=== PATIENT | female | born 1945 | race Caucasian/White ===

== ENCOUNTER 2021-08-20 10:03 | Emergency (ER) | payer MEDICARE, OTHER, SELFPAY ==
[2021-08-20] VITALS (14 sets, daily range): BP systolic 115–168; BP diastolic 60–92; PULSE 76–91; RESP 18; TEMP 35.9; O2SAT 91–100; BMI 30.8
--- NOTE | 2021-08-20 10:04 | DI.RAD.S_ITS ---
PROCEDURE: XR KNEE RT 1TO2V INDICATIONS: fall injury TECHNIQUE: 2 views of the knee were acquired. COMPARISON: [facility], CR, XR KNEE ARTHRITIC SERIES LT, 10/04/2015, 13:39. FINDINGS: Bones: No definite acute fracture identified however there is lucency involving the lateral tibial plateau, technically age indeterminate. Mild narrowing of the medial joint space. Scattered degenerative subchondral sclerosis and spurring. Soft tissues: No joint effusion. No suspicious soft tissue calcifications. IMPRESSION: Nonspecific lucency involving the lateral tibial plateau although radiographically this is age indeterminate and could be chronic. Please correlate with point tenderness. Further evaluation with follow-up radiographs in 10 days to assess for healing sclerosis could be considered. If the patient's pain or other symptoms persist, consider further evaluation with MRI Dictated by: Wesley Valdovinos M.D. on 08/20/2021 at 10:32 Approved by: Wesley Valdovinos M.D. on 08/20/2021 at 10:34
--- NOTE | 2021-08-20 10:04 | DI.RAD.S_ITS ---
PROCEDURE: XR ANKLE RT MIN 3V INDICATIONS: fall injury TECHNIQUE: 3 views of the ankle were acquired. COMPARISON: None. FINDINGS: Bones: Lateral malleolar fracture of the level of the tibiotalar joint line and syndesmosis. Medial malleolar fracture also noted. There is gross tibiotalar articular surface incongruity. Scattered degenerative subchondral sclerosis and spurring. Large plantar and posterior calcaneal spurs. Soft tissues: Circumferential soft tissue swelling. IMPRESSION: Bimalleolar fractures as above. Dictated by: Wesley Valdovinos M.D. on 08/20/2021 at 10:34 Approved by: Wesley Valdovinos M.D. on 08/20/2021 at 10:49
--- NOTE | 2021-08-20 10:04 | DI.RAD.S_ITS ---
PROCEDURE: XR RIBS RT MIN 3V W CXR 1V INDICATIONS: fall injury TECHNIQUE: 2 views of the right ribs were acquired, along with a single view chest. COMPARISON: None. FINDINGS: Surgical changes and devices: None. Bones and chest wall: Posterolateral fracture of the right 5th rib. There is minimal displacement. Lungs and pleura: Scattered subsegmental atelectasis and/or scarring. No focal consolidation. No pleural effusion or pneumothorax. Mediastinum: Mediastinal contours appear normal. Heart size is normal. IMPRESSION: Minimally displaced fracture of the posterolateral right 5th rib. Dictated by: Wesley Valdovinos M.D. on 08/20/2021 at 10:28 Approved by: Wesley Valdovinos M.D. on 08/20/2021 at 10:31
--- NOTE | 2021-08-20 10:04 | ED.LOWEXIN ---
HPI - Extremity Injury (Lower) General Chief Complaint: Trauma Stated Complaint: R Leg pain Time Seen by Provider: 08/20/21 10:08 History of Present Illness HPI Narrative: Patient is a 68 year male history of insulin-dependent diabetic atrial fibrillation on Coumadin presenting today after a fall yesterday with right leg pain. She states that she stepped out of a large truck landed mostly on her right foot and ankle and eventually the lower to the ground. She did not hit her head or lose consciousness. She is complaining of right thoracic back pain. She has no numbness tingling or pain while breathing. She really is not able to bear weight on her right leg. She has knee pain and foot pain. She denies hip pain. Related Data Home Medications Medication Instructions Recorded Confirmed insulin detemir U-100 100 unit/mL 60 unit SUBCUT BEDTIME ml 07/26/19 08/20/21 subcutaneous solution (Levemir U-100 Insulin) metformin 1,000 mg tablet,extended 1,000 mg PO BID tab 07/26/19 08/20/21 release 24hr warfarin 5 mg tablet See Rx Instructions .ROUTE .COMPLEX 07/26/19 08/20/21 metoprolol tartrate 50 mg tablet 50 mg PO BID 08/20/21 08/20/21 Previous Rx's Medication Instructions Recorded hydrocodone 5 mg-acetaminophen 325 1 tab PO Q6H PRN #10 tab 08/20/21 mg tablet Allergies Allergy/AdvReac Type Severity Reaction Status Date / Time Penicillins Allergy does not Verified 07/26/19 11:13 remember Review of Systems Review of Systems Narrative: GENERAL: Denies chills, fatigue, malaise, fever, sweats, travel HEENT: Denies sinus pain, ear pain, sore throat, difficulty swallowing, neck pain RESPIRATORY: Denies dyspnea, cough, wheezing, hemoptysis, sputum. CARDIOVASCULAR: Denies chest pain, palpitations, orthopnea, edema GASTROINTESTINAL: Denies nausea, vomiting, abdominal pain, diarrhea, constipation, melena. : Denies dysuria, frequency, incontinence, hematuria, urinary retention, flank pain. MUSCULOSKELETAL: Lower extremity pain on the right, pain see HPI SKIN: No rash, no erythema, no pruritus NEUROLOGIC: Denies weakness, dizziness, headache, numbness, change in speech, confusion PSYCHIATRIC: No concerning psychosocial issues. 12 point review of systems is negative except for those stated above and HPI Patient History Social History household members: spouse Exam Initial Vital Signs Initial Vital Signs: Vital Signs Temperature 96.7 F L 08/20/21 09:56 Pulse Rate 91 H 08/20/21 09:56 Respiratory Rate 18 08/20/21 09:56 Blood Pressure 168/73 H 08/20/21 09:56 Pulse Oximetry 98 08/20/21 09:56 GENERAL: Alert well-appearing 68-year-old HEENT: Head atraumatic,EOMI, pupils reactive, face symmetric, moist mucous membranes CARDIOVASCULAR: Regular rate and rhythm without murmurs, rubs or gallops. RESPIRATORY: Breath sounds equal bilaterally, no wheezes rales or rhonchi. ABDOMEN: Soft, nontender. Normoactive bowel sounds all 4 quadrants. No guarding or rebound. BACK: No vertebral tenderness no step-off a right thoracic pain no paradoxical movement no contusion EXTREMITIES: Normal range of motion, no clubbing or edema. Neurovascularly intact Right lower extremity no hip pain able to internal and externally rotate however with internal rotation she has pain in her knee. She is able to flex and extend knee she has some very minimal swelling no erythema. Ankle has bilateral swelling mild contusion distal pedal pulse intact foot is within normal limits NEUROLOGICAL: Alert and oriented x4.Normal gait and speech. Cranial nerves II through XII grossly intact. SKIN: Warm, dry, no laceration, no petechiae, no rashes or lesions. Procedures Orthopedic Splinting/Casting Injury #1: Side: right Lower Extremity Injury Location: knee and lower leg Lower Extremity Immobilizer: posterior splint, knee immobilizer and stirrup splint Post splinting neuro exam: intact Post splinting vascular exam: intact Course Orders Ordered: ED Orders 08/20/21 10:04 XR ankle RT min 3V Stat XR knee RT 1to2V Stat XR ribs RT min 3V w CXR1V Stat 08/20/21 10:07 XR hip w pel if done RT 2V Stat 08/20/21 11:18 CT LE RT wo con Stat 08/20/21 14:38 Consult to Physical Therapy Evaluate & Treat 08/20/21 15:42 Consult to Physical Therapy Evaluate & Treat Discontinued Medications Hydrocodone Bitart/Acetaminophen (Hydrocodone/Acet 5/325 Tablet) 1 tab PO NOW ONE Stop: 08/20/21 10:05 Last Admin: 08/20/21 10:13 Dose: 1 tab Documented by: DIMITRI Vital Signs Vital signs: Vital Signs - 8 hr 08/20/21 11:00 08/20/21 11:01 08/20/21 11:30 Pulse Rate 80 83 82 Blood Pressure 135/63 Pulse Oximetry 91 92 100 08/20/21 11:31 08/20/21 12:00 08/20/21 12:01 Pulse Rate 76 76 80 Blood Pressure 138/66 139/60 Pulse Oximetry 98 91 98 08/20/21 12:30 08/20/21 12:31 08/20/21 13:00 Pulse Rate 77 79 84 Blood Pressure 117/60 Pulse Oximetry 95 96 95 08/20/21 13:01 08/20/21 13:30 08/20/21 14:00 Pulse Rate 77 90 78 Blood Pressure 115/92 H 118/78 Pulse Oximetry 96 93 96 08/20/21 14:01 Pulse Rate 77 Blood Pressure 116/62 Pulse Oximetry 96 MDM - Extremity Injury (Lower) Imaging Data Extremity x-ray #1: Radiologist's Impression: PROCEDURE:? XR ANKLE RT MIN 3V ? INDICATIONS:? fall injury ? TECHNIQUE:? 3 views of the ankle were acquired.? ? COMPARISON:? None. ? FINDINGS:? ? Bones:? Lateral malleolar fracture of the level of the tibiotalar joint line and syndesmosis.? Medial malleolar fracture also noted.? There is gross tibiotalar articular surface incongruity. ?Scattered degenerative subchondral sclerosis and spurring.? Large plantar and posterior calcaneal spurs. ? Soft tissues:? Circumferential soft tissue swelling. ? ? IMPRESSION:? Bimalleolar fractures as above. ? Dictated by: Wesley Valdovinos M.D. on 08/20/2021 at 10:34 ? ? Extremity x-ray #2: Radiologist's Impression: PROCEDURE:? XR KNEE RT 1TO2V ? INDICATIONS:? fall injury ? TECHNIQUE:? 2 views of the knee were acquired.? ? COMPARISON:? [facility], CR, XR KNEE ARTHRITIC SERIES LT, 10/04/2015, 13:39. ? FINDINGS:? ? Bones:? No definite acute fracture identified however there is lucency involving the lateral tibial plateau, technically age indeterminate.? Mild narrowing of the medial joint space. Scattered degenerative subchondral sclerosis and spurring.? ? Soft tissues:? No joint effusion.? No suspicious soft tissue calcifications.? ? ? IMPRESSION:? ? Nonspecific lucency involving the lateral tibial plateau although radiographically this is age indeterminate and could be chronic.? Please correlate with point tenderness.? Further evaluation with follow-up radiographs in 10 days to assess for healing sclerosis could be considered.? If the patient's pain or other symptoms persist, consider further evaluation with MRI ? ? ? Dictated by: Wesley Valdovinos M.D. on 08/20/2021 at 10:32 ? ? Approved by: Wesley Valdovinos M.D. on 08/20/2021 at 10:34 ? Extremity x-ray #3: Radiologist's Impression: PROCEDURE:? XR HIP W PEL IF DONE RT 2V ? INDICATIONS:? pain fall ? TECHNIQUE:? AP pelvis with lateral view(s) of the right hip(s).? ? COMPARISON:? None. ? FINDINGS:? ? Bones:? Lumbar spondylosis and facet arthropathy.? Degenerative sclerosis and spurring at the pubis symphysis.? Mild bilateral hip joint degeneration. ? Soft tissues:? The visualized bowel gas pattern is normal.? No suspicious soft tissue calcifications.? ? ? IMPRESSION:? No acute findings.? Chronic changes as above. If the patient's pain or other symptoms persist, consider further evaluation with MRI ? Dictated by: Wesley Valdovinos M.D. on 08/20/2021 at 10:50 ? ? CT LE RT: Radiologist's Impression: PROCEDURE:? CT LE RT WO CON ? INDICATIONS:? ? tibial plateau and ankle fx ? TECHNIQUE:? Noncontrast 1-1.5 mm axial sections acquired from the mid-patella to the proximal tibia, with coronal and sagittal reformats.? ? COMPARISON:? None. ? FINDINGS:? Image quality:? Excellent.? ? Bones:? Minimal displaced fracture of the medial fibular head.? Mildly comminuted fracture of the lateral tibial plateau. Minimal displaced fracture of the medial tibial plateau. Bimalleolar fracture of the ankle. Superior and inferior patellar enthesophytes are noted. 6.6 mm lucency in the 2nd cuneiform, compatible with fibrocystic change.? Degenerative changes about the midfoot with osteophytosis. ? Soft tissues:? Edema about the fracture sites.? Small suprapatellar and ankle joint effusions. ? ? IMPRESSION:? 1. Fractures of the lateral tibial plateau and medial femoral condyle as detailed above. 2. Minimal displaced fracture of the medial tibial plateau.? 3. Bimalleolar fracture of the ankle with associated joint effusion. ? Dictated by: Dominick Morris M.D. on 08/20/2021 at 11:35 ? ? MDM Narrative Medical decision making narrative: Patient fell yesterday complaining of isolated right lower extremity injury. No head injury or neck pain. X-rays confirm possible tibial plateau fracture and bilateral malleolar fracture. CT is done which confirms tibial plateau fracture. Case is discussed with Dr. Ferrara at this time recommend knee immobilizer and short ankle splint. Patient will need surgery request that she call the office to follow-up with Dr. Roman. She will need to stop her Coumadin prior to surgery. The patient is splinted attempted ambulation with crutches however she was unsuccessful. Physical therapy came down and she is able to use walker much easier. She continues to not weight-bear on her right leg. Her pain is very well controlled with oral pain pills at this time. Discharge Plan Departure Patient Disposition: Home Clinical Impression: Closed fracture of right tibial plateau Ankle fracture, right Qualifiers: Encounter type: initial encounter Fracture type: closed Qualified Code(s): S82.891A - Other fracture of right lower leg, initial encounter for closed fracture Instructions: Ankle Fracture, DI for Tibial Plateau Fracture Activity Restrictions/Additional Instructions: *You have been diagnosed with right ankle and knee fracture *What to do: The fracture will heal on its own but will need to remain immobilized. Ankle fracture will need surgery. It is likely that you can have surgery this week. He will need to stop your warfarin/Coumadin however before stopping it please confirm with Orthopedics when surgery date is. May need to talk to primary care provider in regards to stopping Coumadin as well Do not weightbear Use crutches *Continue to take medications as directed [place] 1 tablet every 6 hours if needed for severe *Follow up with your primary care provider in 2-3 days Call orthopedics today he will likely need to see Dr. Harmon *Return to ER if you should have increasing pain swelling numbness tingling inability to move the toes or any new, worsening or concerning symptoms CONTROLLED SUBSTANCE DISCHARGE (Narcotoic/benzodiazepine/Flexeril/Phenergan) 1. You have been prescribed narcotic medications, it does have acetaminophen/Tylenol/paracetamol in it, DO NOT TAKE MORE THAN 4,00mg in 24 hours of Tylenol. TRAMADOL DOES NOT CONTAIN TYLENOL 2. Please understand that we cannot provide further refills of narcotics, benzodiazepines or controlled substances through the ED and her pain management will need to be through your provider. 3. While on these medications you cannot drive or operate heavy machinery. 4. You cannot sign legal documents or perform any duties such as this. 5. As long as you're taking opiate pain medications he should also be taking a stool softener such as Colace, Dulcolax, MiraLAX or prune juice, to help avoid constipation. Prescriptions: New hydrocodone-acetaminophen 5-325 mg tablet 1 tab PO Q6H PRN (Reason: pain) Qty: 10 RF: 0 No Action warfarin 5 mg tablet See Rx Instructions .ROUTE .COMPLEX RF: 0 metformin 1,000 mg tablet extended release 24hr 1,000 mg PO BID RF: 0 Levemir U-100 Insulin 100 unit/mL solution 60 unit SUBCUT BEDTIME RF: 0 metoprolol tartrate 50 mg Tablet 50 mg PO BID RF: 0 Referrals: [facility] [Provider Group] Mine Petersen MD [Physician] -
--- NOTE | 2021-08-20 10:07 | DI.RAD.S_ITS ---
PROCEDURE: XR HIP W PEL IF DONE RT 2V INDICATIONS: pain fall TECHNIQUE: AP pelvis with lateral view(s) of the right hip(s). COMPARISON: None. FINDINGS: Bones: Lumbar spondylosis and facet arthropathy. Degenerative sclerosis and spurring at the pubis symphysis. Mild bilateral hip joint degeneration. Soft tissues: The visualized bowel gas pattern is normal. No suspicious soft tissue calcifications. IMPRESSION: No acute findings. Chronic changes as above. If the patient's pain or other symptoms persist, consider further evaluation with MRI Dictated by: Wesley Valdovinos M.D. on 08/20/2021 at 10:50 Approved by: Wesley Valdovinos M.D. on 08/20/2021 at 10:52
[2021-08-20] MEDS: HYDROCODONE/ACET 5/325 TABLET 1 TAB PO (10:13)
--- NOTE | 2021-08-20 11:18 | DI.CT.S_ITS ---
PROCEDURE: CT LE RT WO CON INDICATIONS: ? tibial plateau and ankle fx TECHNIQUE: Noncontrast 1-1.5 mm axial sections acquired from the mid-patella to the proximal tibia, with coronal and sagittal reformats. COMPARISON: None. FINDINGS: Image quality: Excellent. Bones: Minimal displaced fracture of the medial fibular head. Mildly comminuted fracture of the lateral tibial plateau. Minimal displaced fracture of the medial tibial plateau. Bimalleolar fracture of the ankle. Superior and inferior patellar enthesophytes are noted. 6.6 mm lucency in the 2nd cuneiform, compatible with fibrocystic change. Degenerative changes about the midfoot with osteophytosis. Soft tissues: Edema about the fracture sites. Small suprapatellar and ankle joint effusions. IMPRESSION: 1. Fractures of the lateral tibial plateau and medial femoral condyle as detailed above. 2. Minimal displaced fracture of the medial tibial plateau. 3. Bimalleolar fracture of the ankle with associated joint effusion. Dictated by: Dominick Morris M.D. on 08/20/2021 at 11:35 Approved by: Domniick Morris M.D. on 08/20/2021 at 11:47
--- NOTE | 2021-08-20 15:30 | PT.IIE ---
Physical Therapy Inpatient Evaluation/Re-Eval M1 PT/OT-IP Prior Functional Status Start: 08/20/21 14:43 Freq: Status: Discharge Protocol: Document 08/20/21 15:30 AW (Rec: 08/20/21 16:10 AW [id number]) Medical Review Prior Functional Status Medical History Reviewed No Communication Pt is an effective verbal communicator. Mobility and Gait Pt reports independent household ambulation and modified IND for outdoors with use of tripod cane. She records up to 2000 steps per day on her pedometer. Activities of Daily Living and IADL's Modified IND for showering with use of shower chair. Pt dresses herself and toilets independently. She is independent with IADL's. Her can drive. Prior Functional Level (Other details) PMH includes insulin dependent DM, a fib on coumadin, peripheral neuropathy, history of multiple fractures. Pt states she has fallen twice in the past one year. Social History Household Members spouse Living Arrangements House Number of Floors (Floors) One Floor Number of Stairs To Enter/Railing? Ramped entry appropriate for w /c. Home Environment Standard Height Toilet,Walk in Shower,Ramp Home Equipment Manual Wheelchair,Shower Seat with Backrest,Hand Held Shower ,Long Handled Shoe Horn, Secondary School Special Ed Teacher,Sock Aid,Grab Bars Near Toilet Employment Status Retired Additional Social History Comment Pt has a tripod cane and an adjustable bed. She lives with her spouse, Rory, in [place]. Rory is able to provide up to min assist for mobility. M2 PT-IP Current Condition Start: 08/20/21 14:43 Freq: Status: Discharge Protocol: Document 08/20/21 15:30 AW (Rec: 08/20/21 16:10 AW [id number]) Physical Therapy Current Condition Current Condition Evaluation Date 08/20/21 Treatment Diagnosis R bimalleolar fx, R lat tib plat fx, med fem condyle fx; difficulty walking Onset Date 08/20/21 Precautions Brace splint for ankle; knee immobilizer ordered for all mobility Other Precautions falls Weight Bearing Status Weight Bearing Status Non-Weight Bearing Allowed Weight Bearing Amount (enter % NWB RLE or #) (%) M3 PT-IP Subjective Start: 08/20/21 14:43 Freq: Status: Discharge Protocol: Document 08/20/21 15:30 AW (Rec: 08/20/21 16:10 AW [id number]) Subjective Physical Therapy Visit Type Type Initial Evaluation Visit Start Time 14:53 Visit Stop Time 15:30 Total Visit Minutes 37 Notes ED RN's had difficulty with crutches training and ED provider ordered PT consult. Physical Therapy Visit Comments Patient Comments I'm not sure I can manage on crutches. Patient Goals Return home until surgery for fractures. Therapy Pain Assessment Pain When Pain Assessed During Mobility Pain Present Pain Present Pain Reported Location Right Leg Scale Used not quantified Pain Behaviors Wincing Pain Management Techniques Modification of Treatment,Re- positioning M4 PT-IP Mobility and Gait Start: 08/20/21 14:43 Freq: Status: Discharge Protocol: Document 08/20/21 15:30 AW (Rec: 08/20/21 16:10 AW [id number]) PT-Transfer Assessment Sit to and From Stand Sit to and from Stand Contact Guard Assistance, Minimal Assistance,1 Person Assistance,Use of Upper Extremities Equipment Transfer Assistive Device Gait Belt,Front Wheeled Walker Orthotic/Prosthetic Devices or Brace: Yes Transfers Transfer Destination Wheelchair Transfer Technique Stand Step Pivot Transfer Ability Level of Assist Contact Guard Assistance, Minimal Assistance,1 Person Assistance,Use of Upper Extremities Comments Mobility Comments Pt was sitting up in w/c as PT arrived. PT educated pt on weightbearing status, rationale for use of FWW, and safe use of FWW for transfers. PT demonstrated NWB RLE transfers using FWW. On first attempt, pt required min A x 1 for sit to stand but was able to maintain NWB RLE. She sat on the w/c and attempted sit to stand again with need for CGA. Pt then walked forward and backward three steps each direction with FWW CGA. She returned to the w/c for seated rest break. Pt's spouse arrived and PT demonstrated donning/doffing gait belt which pt and her spouse agreed they could manage. PT educated spouse on guarding techniques and level of assist . Pt's spouse was able to provide CGA appropriately as pt stood from the w/c and ambulated 5 feet with FWW as PT followed with w/c. Pt returned to the w/c CGA. She then transferred w/c <> dasha with FWW and her spouse providing CGA to min assist ( in his estimation). Gait Assessment Gait Gait Assistance Required: Contact Guard Assist,Minimum Assistance Distance (Feet) 5 Able to Maintain Weight Bearing Status Yes During Gait Assistive Devices Assistive Device Gait Belt,Front Wheeled Walker Orthotic/Prosthetic Devices or Brace: Yes Gait Deviations General Gait Pattern Antalgic,Decreased Stride Length,Decreased Feet Clearance,Flexed Trunk,Step-to Gait Factors Limiting Gait Function Factors Limiting Gait Function Decreased Activity Tolerance, Decreased Sensation,Decreased Strength,Limited Range of Motion,Pain,Poor Balance Comments Gait Comments Pt was able to maintain NWB RLE with FWW after PT provided instruction and demonstration . Pt states she will not need to walk farther than 5 feet at home and plans to primarily mobilize with w/c. Stair Climbing Assessment Comments Stair Climbing Comments Not assessed. No stairs at home. PT-Balance Assessment Sitting Balance and Reactions Static Sitting Balance Ability Normal Dynamic Sitting Balance Ability Normal Standing Balance and Reactions Static Standing Balance Ability Fair Dynamic Standing Balance Ability Fair Device Used FWW Comments Other Balance Tests/Deviations/Treatment Pt able to ambulate 5 feet on : LLE with FWW M5 PT-IP Objective Assessments Start: 08/20/21 14:43 Freq: Status: Discharge Protocol: Document 08/20/21 15:30 AW (Rec: 08/20/21 16:10 AW [id number]) Orientation Orientation/Cognition Level of Alertness Alert Orientation Name,Day of Week,Place, Situation Language Function Ability No Deficits Noted Safety Awareness Understands Safety Issues Memory Description No Deficits Noted Gross Range of Motion Upper Extremity ROM Assessment Within Functional Limits Lower Extremity ROM Assessment Right Impaired Strength Upper Extremity Strength Assessment Within Functional Limits Lower Extremity Strength Assessment Right Impaired Comments Strength Comments Left hip 4/5. Left knee and ankle 4+/5. Sensation Assessment Sensation Gross Sensation Right UE Impaired,Left UE Impaired,Right LE Impaired, Left LE Impaired Light Touch Impaired Proprioception (Position) Impaired Sensation Description Numbness Comments Sensation Comments Pt reports neuropathy affects sensation from knee joint and distal bilaterally. Hands are also affected. Muscle Tone Muscle Tone WNL Yes M6 PT-IP Treatment Start: 08/20/21 14:43 Freq: Status: Discharge Protocol: Document 08/20/21 15:30 AW (Rec: 08/20/21 16:10 AW [id number]) Physical Therapy Treatment Education Education Provided Weight Bearing Status,Safety Brace Education [place],Patient, Caregiver Equipment Issued Equipment Type and Company ED issued FWW for home use/ [employer]. Other Treatments Other Treatment Performed Provided extensive sit-to- stand and transfer training. Pt's spouse participated in caregiver training M7 PT-IP Assessment and Plan Start: 08/20/21 14:43 Freq: Status: Discharge Protocol: Document 08/20/21 15:30 AW (Rec: 08/20/21 16:10 AW [id number]) PT Summary Assessment and Plan Potential Rehabilitation Potential Good Status of Condition at Evaluation Evolving Summary Impairments Pain,ROM,Strength,Balance, Sensation,Bed Mobility, Transfers,Gait,Activity Tolerance Assessment Summary Pat is a 76 yo woman seen for PT evalaution in the ED. She fell from a truck and sustained right bimalleolar ankle fracture as well as lateral tibial plateau and medial femoral condyle fractures. She is to be NWB RLE and to use knee immobilizer for all mobility. She is independent with household ambulation and modified independent outside the home with use of tripod cane. On assessment, pt required min assist/CGA for sit to stand, transfers, and short distance ambulation with FWW. Her spouse was able to provide appropriate level of assist. Pt has ramped entry at home and a wheelchair. PT recommends FWW for transfers at home and pt would benefit from BSC or raised toilet seat . Pt is safe to discharge home with FWW and 24/7 assist for all mobility. She would benefit from home health services. She will have ortho consult and surgery on an outpatient basis. Frequency of Treatment Frequency Of Treatment Discharge Recommendations To Nursing Amount of Assist Needed 1 Person Assist Discharge Recommendations PT Discharge Recommendations Home with Assistance,Home with 24/7 Assist Available,Home Health Other Discharge Recommendations BSC vs raised toilet seat Transportation Needs at Discharge Private Vehicle
== END 2021-08-20 15:44 | disposition home or self-care (01) ==
PROVIDERS: Emergency Provider Emergency Medicine
DX: S82.141A Displaced bicondylar fracture of right tibia, initial encounter for closed fracture (principal); S82.891A Other fracture of right lower leg, initial encounter for closed fracture; W19.XXXA Unspecified fall, initial encounter
CPT/HCPCS: 29515; 29530; 71101; 73502; 73560; 73610; 73700; 97162; 97530; 97535; 99284; 99285

== ENCOUNTER → 2021-10-03 14:41 | Outpatient (CLI) | payer MEDICARE, OTHER, SELFPAY ==
[2021-10-03 15:14] LABS: COVID19 -Nasal RAPID Negative (Negative)
== END ==
PROVIDERS: Family Provider Orthopaedic Surgery Foot and Ankle Surgery; PCP Orthopaedic Surgery Foot and Ankle Surgery; Visit Provider Nurse Practitioner Family
DX: Z20.822 Contact with and (suspected) exposure to COVID-19 (principal)
CPT/HCPCS: 87635; C9803

== ENCOUNTER 2021-10-05 12:04 | Inpatient (IN) | payer MEDICARE, OTHER, SELFPAY ==
[2021-10-05] VITALS (8 sets, daily range): BP systolic 117–135; BP diastolic 49–81; PULSE 83–89; RESP 12–18; TEMP 36.1–36.8; O2SAT 91–96; BMI 31.2
[2021-10-05] MEDS: LACTATED RINGERS 1,000 ML 42 ML IV (13:18)
--- NOTE | 2021-10-05 15:48 | PM.PREOP ---
Pre-operative Note Interval Note History & Physical reviewed/Exam performed by Physician: Yes Changes to H&P: No
[2021-10-05] MEDS: CLINDAMYCIN 900 MG/50 ML PIGGYBACK 50 MG IV (16:08)
--- NOTE | 2021-10-05 16:38 | SUR.OPER ---
Supine on padded OR bed, head on pillow, arms secured on padded arm boards at <90 degrees abduction, legs uncrossed, safety belt at thigh, tape over blanket over lower legs. rolled blankets positioned under patient's right leg.
[2021-10-05] MEDS: BUPIVACAINE 0.25% (PF) 30 ML, EPINEPHrine 0.15 MG INJ (16:57)
--- NOTE | 2021-10-05 17:18 | SUR.PHASEI ---
surgeon in to speak with patient. questions invited and answered. physician aware toes are cold on RLE. States WNL.
--- NOTE | 2021-10-05 17:28 | P.OP_ITS ---
Operative Date/Time/Diagnoses Date of procedure: 10/05/21 Time of procedure: 16:00 Pre-op diagnosis: Infection surgical site Post-op diagnosis: same Procedure & Clinicians Procedure: Irrigation debridement muscle fascia initial 20 sq cm or less, right CPT code 16830 Same procedure as scheduled: Yes Indications: Patient is a 76-year-old female on chronic anticoagulation for atrial fibrillation that fell and injured her right knee and ankle on August 19, 2021. She was found to have a tibial plateau fracture and a bimalleolar ankle fractur e. She is status post ORIF ankle fracture 08/28/2021. Non operative treatment tibial plateau. She had a lateral incision a dehiscence at her ankle with worsening appearance concerning for infection. She was indicated for formal debridement in the operating room and cultures. The risks and benefits of the procedure have been discussed with the patient even opportunity to ask questions. The risks of surgery include but are not limited to infection, malunion, nonunion, persistence of pain, damage to nerves and blood vessels, posttraumatic arthritis, DVT, PE, cardiopulmonary complications and . The patient expressed a thorough understanding of the risks and benefits of surgery and has elected to proceed. Consent was signed in the office. Surgeon: Mine Petersen Click Yes if Unassisted: Yes Anesthesia Type: General and Local Operative Notes Findings: Proximal 1/3 incision with dehiscence and deep tracking to hardware. No gross purulence was encountered but there was some necrotic muscle that was debrided. Closure Type: primary Specimen(s): other (Tissue and culture swab sent) Estimated Blood Loss (mL): 10 Blood products transfused: none Tourniquet time (min): 14 Procedure in detail: Patient was seen in the preoperative area the site of surgery was marked informed consent confirmed. She was brought back to the operating room by the anesthesia team positioned supine on the operative table. All bony prominences well padded. An SCD was placed on the contralateral lower extremity. A well- padded thigh tourniquet was placed on the operative extremity. Right lower extremities prepped and draped in the standard sterile fashion. Formal time-out procedure was performed confirming the patient's side and site of surgery administration of antibiotics. The patient had been on a few days of oral antibiotics prior to her surgery date. Attention turned to the right lower extremity gravity exsanguination was completed the tourniquet elevated. The open wound along the lateral aspect of the ankle and proximal aspect of the previous fibular incision was ellipsed sized out. This did track full-thickness. No gross purulence was encountered. There was some necrotic muscle and fascia the location of the ellipsed sized wound. Finger dissection did get down to the plate proximally. A rongeur and curette were used to remove old dissolving sutures and nonviable tissue. Curette was used for debridement. Tissue and culture swabs were sent. Wound was thoroughly irrigated with 6 L of saline using cysto tubing. Once this was completed the tourniquet was released. Hemostasis was achieved. The wound was closed with 2-0 PDS and 2-0 nylon sutures. Sterile dressing was placed with Xeroform gauze Kerlix and an Vishnu wrap. A new padded dressing was placed on the patient's 1st metatarsal callus. Patient was woken from anesthesia and taken to recovery room in good condition. There no immediate complications from this procedure. All counts were correct. Complications: none Post-operative Condition: stable Disposition: PACU Plan for aftercare: Admit to inpatient for IV antibiotics. Empiric vancomycin. Will adjust based on cultures. Retained hardware for healing fracture. Plan for possible discharge with IV antibiotics. Toe-touch weight-bearing. Will restart baseline warfarin
--- NOTE | 2021-10-05 17:59 | SUR.PHASEI ---
1715 Observed pt's operative foot remarkably cooler palpated than other foot. Informed Dr. Petersen, no new orders at this time, poct glucose at transfer 82. Pt transported to and report given to FILOMENA Arnold, Pt in stable condition, a/ox 4. VSS
--- NOTE | 2021-10-05 18:05 | PC.NURSE ---
Day shift: Pt on unit from PACU at approx 1800. Denies any pain. VS WNL. RA 97%. Dressing is CDI. Rt foot/toes cold to the touch and COMMERCIAL HVAC TECHNICIAN said she informed Dr Martin. Will continue to monitor this. Tolerating left calf SCD. She is A&Ox4. Agrees to not get OOB w/o help from staff. Oriented to room and call light. Call light in reach and bed alarm is on.
[2021-10-05 19:16] LABS: Estimated Glomerular Filt Rate > 60.0 mL/min (>60)
[2021-10-05] MEDS: VANCOMYCIN 1,500 MG/300 ML PIGGYBACK 200 MG IV (19:21)
[2021-10-05] MEDS: SODIUM CHLORIDE 0.9% 1,000 ML 84 ML IV (19:21)
[2021-10-05] MEDS: INSULIN GLARGINE 100 UNIT/ML 3ML PEN 60 UNIT SUBCUT (20:51)
[2021-10-05] MEDS: METOPROLOL IR 50 MG TABLET PO (20:52)
[2021-10-05] MEDS: DOCUSATE 100 MG CAPSULE PO (20:52)
[2021-10-05] MEDS: ACETAMINOPHEN 325 MG TABLET 975 MG PO (20:52)
[2021-10-05] MEDS: METFORMIN XR 500 MG TABLET 1000 MG PO (20:52)
[2021-10-06 06:08] VITALS: BP 114/45; PULSE 77; RESP 16; TEMP 36.6; O2SAT 94
[2021-10-06] MEDS: SODIUM CHLORIDE 0.9% 1,000 ML 84 ML IV (06:15)
[2021-10-06] MEDS: VANCOMYCIN 1,000 MG/200 ML PIGGYBACK 200 MG IV ×2 (06:17→18:28)
[2021-10-06 07:18] LABS: Add Manual Diff / Slide Review NO; Basophils Absolute Auto 100 /uL (0-100); Basophils Percent Auto 0.7 % (0-2); Eosinophils Absolute Auto 400 /uL (0-450); Eosinophils Percent Auto 5.2 % (2-4); Hematocrit 37.8 % (36-46); Hemoglobin 12.7 g/dL (12.0-16.0); Lymphocytes Absolute Auto 1900 /uL (1100-4500); Lymphocytes Percent Auto 22.4 % (25-40); Mean Corpuscular HGB Conc 33.7 % (30-36); Mean Corpuscular Hemoglobin 30.1 PG (26-34); Mean Corpuscular Volume 89.5 fL (80-100); Monocytes Absolute Auto 400 /uL (0-900); Monocytes Percent Auto 4.8 % (3-14); Neutrophils Absolute Auto 5700 /uL (1500-7000); Neutrophils Percent Auto 66.9 % (50-75); Platelet Count 193 X10^3/uL (150-400); Red Blood Cell Count 4.22 X10^6/uL (4.0-5.2); Red Cell Distribution Width 14.4 % (11.6-14.8); White Blood Cell Count 8.6 X10^3/uL (4.5-11.0)
[2021-10-06 07:29] LABS: Alanine Aminotransferase 15 IU/L (<35); Albumin 3.9 g/dL (3.5-5.0); Albumin Globulin Ratio 1.2 (1.0-2.8); Alkaline Phosphatase 57 U/L (38-126); Aspartate Aminotransferase 21 IU/L (14-36); BUN Creatinine Ratio 19.2 (6-22); Bilirubin Total 0.4 mg/dL (0.2-1.3); Blood Urea Nitrogen 15 mg/dL (7-17); C-Reactive Protein Quant 1.3 mg/dL (<1.0); Calcium 10.2 mg/dL (8.4-10.2); Carbon Dioxide 24 mmol/L (22-32); Chloride 104 mmol/L (98-107); Estimated Glomerular Filt Rate > 60.0 mL/min (>60); Globulin 3.2 g/dL (1.7-4.1); Glucose 79 mg/dL (80-110); HEMOLYSIS < 15 (0-50); Potassium 4.9 mmol/L (3.4-5.1); Sodium 137 mmol/L (137-145); Total Protein 7.1 g/dL (6.3-8.2)
[2021-10-06 07:53] VITALS: BP 111/67; PULSE 82; RESP 18; TEMP 36.6; O2SAT 98
--- NOTE | 2021-10-06 08:46 | PM.PNPO.1 ---
Subjective Subjective Date Patient Seen: 10/06/21 Time Patient Seen: 08:46 Interval history: Postop day 1 I&D right ankle infection after open reduction internal fixation for fracture.--patient with diabetes, AFib Coumadin. Also has non tibial plateau fracture on right side. Doing well. Denies pain. Touchdown weight-bearing. No growth from cultures yet. On empiric vancomycin. Tolerating Exam Vital Signs (past 8 hours): - 10/06/21 06:08 Temperature 97.9 F Pulse Rate 77 Respiratory Rate 16 Blood Pressure 114/45 L Pulse Oximetry 94 Oxygen Delivery Method Room Air Oxygen Flow Rate 0 Narrative Exam Narrative: Alert oriented female no acute distress. HEENT exam normocephalic atraumatic respiratory exam. CV exam regular rate Right lower extremity dressing in place on ankle. Wiggles toes. Brisk capillary refill. Palpable dorsal pulse. Demonstrates dorsiflexion plantar flexion. Calf is soft. Objective Labs Result Diagrams: 10/06/21 07:00 10/06/21 07:00 Labs: Laboratory Results - last 24 hr 10/05/21 10/06/21 10/06/21 18:30 07:00 07:00 WBC 8.6 RBC 4.22 Hgb 12.7 Hct 37.8 MCV 89.5 MCH 30.1 MCHC 33.7 RDW 14.4 Plt Count 193 Neut % (Auto) 66.9 Lymph % (Auto) 22.4 L [place] % (Auto) 4.8 Eos % (Auto) 5.2 H Baso % (Auto) 0.7 Neut # (Auto) 5700 Lymph # (Auto) 1900 [place] # (Auto) 400 Eos # (Auto) 400 Baso # (Auto) 100 Sodium 137 Potassium 4.9 Chloride 104 Carbon Dioxide 24 BUN 15 Creatinine 0.75 0.78 Estimated GFR > 60.0 > 60.0 BUN/Creatinine Ratio 19.2 Glucose 79 L Calcium 10.2 Total Bilirubin 0.4 AST 21 ALT 15 Alkaline Phosphatase 57 C-Reactive Protein 1.3 H Total Protein 7.1 Albumin 3.9 Globulin 3.2 Albumin/Globulin Ratio 1.2 [facility] Medical History Breast cancer HTN (hypertension) IDDM (insulin dependent diabetes mellitus) Peritonitis Seizure, temporal lobe Social History household members: spouse Smoking Status: Never smoker alcohol intake: current Assessment & Plan Post-op Postoperative Procedures: Procedures Operation Date: 10/05/21 13:15 Actual Procedure Side Surgeon p I&D wound infection Right Ankle Right Mine Petersen MD Postoperative day: 1 Postoperative status: doing well Postoperative status narrative: Doing well. Denies pain. Postoperative plan narrative: Toe-touch weight-bearing. Indication for admission for continued IV antibiotics for infection/retained hardware for fracture healing. Cultures pending. Anticipate admission with IV antibiotics until cultures finalized. Restarted on home anticoagulation plus SCDs Time Spent With Patient Time with patient: less than 15 minutes Quality VTE Deep Vein Thrombosis/Pulmonary Embolism Present on Admission: No
--- NOTE | 2021-10-06 09:26 | CM.DANOTE ---
DCP: Case received, EMR reviewed and met with patient. Introduced self and role. Was able to obtain information regarding patient's baseline activity level prior to hospitalization. DCP assessment completed with information currently available. Patient is a 76 year old female who admitted yesterday morning to the care of the orthopedic team. PCP: Unknown at this time, but ortho is Dr. Petersen. Payer: confirmed: Medicare/[facility]. Patient came to the hospital via private vehicle for a surgical procedure. She had I&D, for previous surgery in August, as patient suffered from a tibial fracture, bimalleolar. Met with patient in her room. She is alert and oriented. Confirmed that she resides here in [place] with her spouse, Jose E. She indicated, he's 84 years old, and not much of a help. She also refuses to go to any rehab facilities due to the COVID pandemic. Confirmed with her also that she had [facility] for some time, they had been coming in 6 days a week after her surgery, but no longer needed them. She also indicated that [facility] was originally ordered, but had not used them, since she was going to try to do outpatient therapy, which did not work out. Patient indicated that she does not drive, her takes her to her appointments. She has a wheel-chair for home use. She stated, if she has to, she can call them again. She indicated that she lives in a handicap friendly house, there is a ramp to get in. She has a son that lives in [place], and another in [place]. She has grandchildren, but they have their own lives, and I don't expect them to help. She is hoping to have [facility] therapy and nursing to come in for dressing changes. Asked her if she would be comfortable managing IV therapy if needed, and stated, I really hope I don't, I'm getting old, and hope that I can just go home with oral antibiotics. Cultures are currently pending. Options for patient would be for her to go to infusion clinic if needed, depending on how often she needs IV ABO, if this is what is needed. Other option is [facility], if her secondary would cover, since home infusion is not covered by Medicare. P: DCP to continue to follow for needs, home health, and if she needs home infusion as well. Anastasia Prince RN/Gasoline Engine Assembler Discharge Planning/Care Management CM Discharge Assessment Start: 10/06/21 09:23 Freq: Status: Active Protocol: Document 10/06/21 09:23 (Rec: 10/06/21 09:26 [id number]) Discharge Planning Assessment Assigned Pediatrician Managing Partner Anastasia Prince RN/Gasoline Engine Assembler Advance Directives? Yes Advance Directives on File No History Provided By Patient,Medical Record Prior Living Arrangements House Household Members spouse Type of transporation used prior to Relies on Others admit Independent with ADL's Yes Is patient alert and oriented? Yes Needs Assistance With Meal Prep,Home Chores / Shopping Caregiver for Another No DME Already Rented / Owned Wheelchair Patient/Family Preference Home with Home Health Comment Patient had been using [facility] Comment If patient needs residential IV ABO, or wound vac. She will not go to rehab. Discharge Plan Home with Home Health Transportation Arrangement Spouse Referrals Initiated Other Additional Comment Will see how she does with P.T , and if she needs possible home infusion. Whiteboard Updated in Patient Room with Yes name and ext. # of Pediatrician Managing Partner Review Status In Process Next Review Type Continued Stay Review
--- NOTE | 2021-10-06 09:30 | PT.IIE ---
Current Diagnoses Nondisplaced unspecified condyle fracture of lower end of right femur, initial encounter for closed fracture (10/05/21) Displaced bicondylar fracture of right tibia, initial encounter for closed fracture (10/05/21) Displaced bimalleolar fracture of right lower leg, initial encounter for closed fracture (10/05/21) Surgery Performed Operation Date: 10/05/21 13:15 Actual Procedures p I&D wound infection Right Ankle(Right) - Mine Petersen MD Medical History (Last Reviewed 10/06/21 @ 08:49 by Mine Petersen MD) Breast cancer HTN (hypertension) IDDM (insulin dependent diabetes mellitus) Peritonitis Seizure, temporal lobe Physical Therapy Inpatient Evaluation/Re-Eval M1 PT/OT-IP Prior Functional Status Start: 10/06/21 12:41 Freq: NEEDED Status: Active Protocol: Document 10/06/21 09:30 AB (Rec: 10/06/21 13:03 AB [email or web address]) Medical Review Prior Functional Status Medical History Reviewed Yes Communication able to make needs known Mobility and Gait pt stated that she is modified independent with all mobilities and has not ambulated since august 19 due to L tibia and ankle fx. pt has been using a w/c for mobility indoors/outdoors and able to partial stand pivot without AD. Social History Household Members spouse Living Arrangements House Number of Floors (Floors) One Floor Number of Stairs To Enter/Railing? ramp to enter Home Environment Standard Height Toilet,Walk in Shower,Ramp Home Equipment Raised Toilet Seat w/Armrests, Shower Seat with Backrest,Grab Bars Near Toilet Additional Social History Comment pt has an adjustable bed M2 PT-IP Current Condition Start: 10/06/21 12:41 Freq: NEEDED Status: Active Protocol: Document 10/06/21 09:30 AB (Rec: 10/06/21 13:03 AB [email or web address]) Physical Therapy Current Condition Current Condition Evaluation Date 10/06/21 Treatment Diagnosis R ankle I&D s/p ORIF; difficulty in walking Onset Date 10/05/21 M3 PT-IP Subjective Start: 10/06/21 12:41 Freq: NEEDED Status: Active Protocol: Document 10/06/21 09:30 AB (Rec: 10/06/21 13:03 AB [email or web address]) Subjective Physical Therapy Visit Type Type Initial Evaluation Visit Start Time 09:30 Visit Stop Time 10:25 Total Visit Minutes 55 Notes pt with h/o R tibial plateau fx. Talked with Dr. Petersen and confirmed that pt does not need a knee immobilizer and can do ROM as tolerated and the only precaution is the TTWB on RLE. Number of COURTESY DRIVER Visits 0 Physical Therapy Visit Comments Patient Comments pt is agreeable to do PT but initially does not want to use FWW M4 PT-IP Mobility and Gait Start: 10/06/21 12:41 Freq: NEEDED Status: Active Protocol: Document 10/06/21 09:30 AB (Rec: 10/06/21 13:03 AB [email or web address]) PT-Transfer Assessment Sit to and From Stand Sit to and from Stand Standby Assistance,Minimal Assistance,Moderate Assistance ,1 Person Assistance Equipment Transfer Assistive Device None,Gait Belt,Front Wheeled Walker Orthotic/Prosthetic Devices or Brace: No Transfers Transfer Destination Bed,Chair Transfer Technique Stand Step Pivot Transfer Ability Level of Assist Standby Assistance,Minimal Assistance,Moderate Assistance ,Use of Upper Extremities Comments Mobility Comments pt sitting on bedside commode and ready to transfer to bed. completed stand pivot using FWW min A and cues back to the bed with posterior LOB. pt stated that she does not use a FWW to transfer and does a partial stand/squat pivot to/ from w/c and has not ambulated since she fracture her R tibia/ankle last aug.19. Pt agreed to do PT evaluation. educated pt on body posture and progression for a stand/ squat pivot transfer to using a FWW for a step pivot transfer for eventually ambulation when pt is allowed to put more weight on RLE. Pt agreed but still with some reservations. pt demonstrated partial stand/ squat pivot transfer from bed to chair SBA. able to maintain TTWB on RLE. pt educated on use of FWW for transfers, upright posture, COG and balance during transfers. pt completed sit to stand CGA and was able to stand using FWW for support and maintain TTWB RLE. completed pivot transfer using fWW to bed min A and cues. educated pt on how to take steps during transfers using FWW. pt completed sit to stand from EOB CGA and step transfer to chair min to mod A and cues but was able to take steps for transfers. pt stated that she is still not comfortable with step transfer and informed pt that she has not used a FWW before and she will need training and will progress. pt agreed to stay up on chair. positioned pt on chair. call light and table placed within reach. Gait Assessment Comments Gait Comments steps during transfers using FWW PT-Balance Assessment Sitting Balance and Reactions Static Sitting Balance Ability Good Dynamic Sitting Balance Ability Good Standing Balance and Reactions Static Standing Balance Ability Fair Dynamic Standing Balance Ability Fair Device Used FWW M5 PT-IP Objective Assessments Start: 10/06/21 12:41 Freq: NEEDED Status: Active Protocol: Document 10/06/21 09:30 AB (Rec: 10/06/21 13:03 [email or web address] Orientation Orientation/Cognition Level of Alertness Alert Orientation Name,Age,Birthday,Month,Date, Year,Day of Week,Place, Situation Language Function Ability No Deficits Noted Safety Awareness Understands Safety Issues Memory Description No Deficits Noted Gross Range of Motion Lower Extremity ROM Assessment Within Functional Limits Strength Lower Extremity Strength Assessment Right Impaired Hip 4-/5 Knee 3+/5 Coordination Assessment Gross Coordination Gross Coordination WNL Sensation Assessment Sensation Gross Sensation WNL Muscle Tone Muscle Tone WNL Yes M6 PT-IP Treatment Start: 10/06/21 12:41 Freq: NEEDED Status: Active Protocol: Document 10/06/21 09:30 AB (Rec: 10/06/21 13:03 AB [email or web address]) Physical Therapy Treatment Education Education Provided Precautions,Weight Bearing Status,Safety M7 PT-IP Assessment and Plan Start: 10/06/21 12:41 Freq: NEEDED Status: Active Protocol: Document 10/06/21 09:30 AB (Rec: 10/06/21 13:03 AB [facility]) PT Summary Assessment and Plan Potential Rehabilitation Potential Good Status of Condition at Evaluation Stable Summary Impairments Pain,ROM,Strength,Balance, Coordination,Sensation,Tone, Cognition,Bed Mobility, Transfers,Gait,Activity Tolerance Assessment Summary pt requiring min to mod A for step transfer using FWW but is SBA with squat pivot transfer . pt stated that her spouse is not comfortable assisting her. pt will need HHPT. pt is willing to work on step transfer using fWW while here in the hospital and hopefully be able to progress to some ambulation when appropriate. will continue to assess progress. Goals Bed Mobility Goal Independent Transfer Goal Independent,Front Wheeled Walker Gait Goal Contact Guard Assistance Gait Distance 25 Days to Meet Goals 10 Frequency of Treatment Frequency Of Treatment Once a Day Treatment Plan Physical Therapy Treatment Plan Bed Mobility Training,Transfer Training,Gait Training, Therapeutic Exercise,Balance Retraining,Post Op Education, Discharge Planning,Hot or Cold Pack,Neuromuscular Re-ed, Coordination Retraining,Manual Therapy Weight Bearing Status Weight Bearing Status Touch Down Weight Bearing Allowed Weight Bearing Amount (enter % RLE TTWB or #) (%) Recommendations To Nursing Amount of Assist Needed 1 Person Assist Discharge Recommendations PT Discharge Recommendations Home with Assistance,Home Health Transportation Needs at Discharge Private Vehicle
[2021-10-06] MEDS: METOPROLOL IR 50 MG TABLET PO ×2 (09:39→21:06)
[2021-10-06] MEDS: ACETAMINOPHEN 325 MG TABLET 975 MG PO ×3 (09:39→21:06)
[2021-10-06] MEDS: DOCUSATE 100 MG CAPSULE PO ×2 (09:39→21:06)
[2021-10-06] MEDS: METFORMIN XR 500 MG TABLET 1000 MG PO ×2 (09:39→21:07)
[2021-10-06 14:43] VITALS: BP 136/54; PULSE 80; RESP 19; TEMP 36.6; O2SAT 95
[2021-10-06] MEDS: WARFARIN 5 MG TABLET PO (17:39)
[2021-10-06 19:25] VITALS: BP 143/65; PULSE 78; RESP 14; TEMP 36.7; O2SAT 96
[2021-10-06 19:42] VITALS: PULSE 80; RESP 16; O2SAT 95
[2021-10-07] MEDS: OXYCODONE IR 5 MG TABLET PO (01:58)
[2021-10-07 02:00] VITALS: BP 139/68; PULSE 79; RESP 14; TEMP 36.5; O2SAT 95
[2021-10-07] MEDS: VANCOMYCIN 1,000 MG/200 ML PIGGYBACK 200 MG IV ×2 (06:46→19:37)
[2021-10-07 06:51] LABS: Add Manual Diff / Slide Review NO; Basophils Absolute Auto 100 /uL (0-100); Basophils Percent Auto 1.1 % (0-2); Eosinophils Absolute Auto 600 /uL (0-450); Eosinophils Percent Auto 7.1 % (2-4); Hematocrit 38.6 % (36-46); Hemoglobin 12.9 g/dL (12.0-16.0); Lymphocytes Absolute Auto 2600 /uL (1100-4500); Lymphocytes Percent Auto 29.1 % (25-40); Mean Corpuscular HGB Conc 33.5 % (30-36); Mean Corpuscular Hemoglobin 29.7 PG (26-34); Mean Corpuscular Volume 88.7 fL (80-100); Monocytes Absolute Auto 500 /uL (0-900); Monocytes Percent Auto 5.4 % (3-14); Neutrophils Absolute Auto 5200 /uL (1500-7000); Neutrophils Percent Auto 57.3 % (50-75); Platelet Count 207 X10^3/uL (150-400); Red Blood Cell Count 4.35 X10^6/uL (4.0-5.2); Red Cell Distribution Width 14.2 % (11.6-14.8)
[2021-10-07 06:56] VITALS: BP 127/50; PULSE 67; RESP 14; TEMP 36.3; O2SAT 96
[2021-10-07 06:57] LABS: Alanine Aminotransferase 14 IU/L (<35); Albumin 3.9 g/dL (3.5-5.0); Albumin Globulin Ratio 1.1 (1.0-2.8); Alkaline Phosphatase 56 U/L (38-126); Aspartate Aminotransferase 20 IU/L (14-36); BUN Creatinine Ratio 25.4 (6-22); Bilirubin Total 0.4 mg/dL (0.2-1.3); Blood Urea Nitrogen 17 mg/dL (7-17); Calcium 10.2 mg/dL (8.4-10.2); Carbon Dioxide 27 mmol/L (22-32); Chloride 105 mmol/L (98-107); Estimated Glomerular Filt Rate > 60.0 mL/min (>60); Globulin 3.4 g/dL (1.7-4.1); Glucose 78 mg/dL (80-110); HEMOLYSIS < 15 (0-50); Potassium 4.8 mmol/L (3.4-5.1); Sodium 140 mmol/L (137-145); Total Protein 7.3 g/dL (6.3-8.2)
[2021-10-07 07:10] LABS: Vancomycin Trough 11.3 ug/mL (10-20)
[2021-10-07] MEDS: ACETAMINOPHEN 325 MG TABLET 975 MG PO ×3 (08:20→22:07)
[2021-10-07] MEDS: DOCUSATE 100 MG CAPSULE PO ×2 (08:21→22:07)
[2021-10-07] MEDS: METFORMIN XR 500 MG TABLET 1000 MG PO ×2 (08:21→22:07)
[2021-10-07] MEDS: METOPROLOL IR 50 MG TABLET PO ×2 (08:21→22:07)
--- NOTE | 2021-10-07 08:36 | PC.NURSE ---
Assumed care of pt at 0700. Pt resting in bed during hand-off. A/O. Denies pain. Drsg with ramón wrap to RLE C/D/I. BG 70. Denies symptoms. Breakfast provided. Jam placed on toast to help with hypoglycemia. Bed alarm on. Call light within reach. Pt verbalized she will call for needs.
--- NOTE | 2021-10-07 08:59 | PM.PNPO.1 ---
Subjective Subjective Date Patient Seen: 10/07/21 Time Patient Seen: 08:59 Interval history: Postop day 2 I&D right ankle. Pain controlled. No fevers chills nausea or vomiting. On IV vanc. No growth so far from intraoperative cultures. Exam Vital Signs (past 8 hours): - 10/07/21 02:00 10/07/21 06:56 Temperature 97.7 F 97.4 F L Pulse Rate 79 67 Respiratory Rate 14 14 Blood Pressure 139/68 127/50 L Pulse Oximetry 95 96 Oxygen Delivery Method Room Air Oxygen Flow Rate 0 Narrative Exam Narrative: Alert oriented no acute distress. Eating breakfast. HEENT normocephalic atraumatic. Respiratory exam unlabored on room air. Heart regular rate. Right lower extremity dressing change today. Sutures intact. No erythema. Minimal drainage on dressings. No malodor. Demonstrates dorsiflexion plantar flexion. Wiggles toes. Calf is soft. SCD on contralateral lower extremity Objective Labs Result Diagrams: 10/07/21 06:30 10/07/21 06:30 Labs: Laboratory Results - last 24 hr 10/07/21 10/07/21 10/07/21 06:30 06:30 06:30 WBC 9.0 RBC 4.35 Hgb 12.9 Hct 38.6 MCV 88.7 MCH 29.7 MCHC 33.5 RDW 14.2 Plt Count 207 Neut % (Auto) 57.3 Lymph % (Auto) 29.1 [place] % (Auto) 5.4 Eos % (Auto) 7.1 H Baso % (Auto) 1.1 Neut # (Auto) 5200 Lymph # (Auto) 2600 [place] # (Auto) 500 Eos # (Auto) 600 H Baso # (Auto) 100 Sodium 140 Potassium 4.8 Chloride 105 Carbon Dioxide 27 BUN 17 Creatinine 0.67 Estimated GFR > 60.0 BUN/Creatinine Ratio 25.4 H Glucose 78 L Calcium 10.2 Total Bilirubin 0.4 AST 20 ALT 14 Alkaline Phosphatase 56 Total Protein 7.3 Albumin 3.9 Globulin 3.4 Albumin/Globulin Ratio 1.1 Vancomycin Trough 11.3 PFSH Medical History Breast cancer HTN (hypertension) IDDM (insulin dependent diabetes mellitus) Peritonitis Seizure, temporal lobe Social History household members: spouse Smoking Status: Never smoker alcohol intake: current Assessment & Plan Post-op Postoperative Procedures: Procedures Operation Date: 10/05/21 13:15 Actual Procedure Side Surgeon p I&D wound infection Right Ankle Right Mine Petersen MD Postoperative day: 2 Postoperative status: doing well Postoperative status narrative: Doing well postop day 2 right ankle I&D Postoperative plan narrative: Toe-touch weight-bearing right lower extremity for full range of motion. Dressing changed today. May change needed to clean gauze. Otherwise keep dressing in place until follow-up. Will continue IV antibiotics pending cultures. Continued indication for inpatient admission for IV antibiotics. Will need to change 1st postop appointment to sublimity location On home warfarin+SCDs Time Spent With Patient Time with patient: less than 15 minutes Quality VTE Deep Vein Thrombosis/Pulmonary Embolism Present on Admission: No
--- NOTE | 2021-10-07 11:05 | PT.IPTN ---
Current Diagnoses Nondisplaced unspecified condyle fracture of lower end of right femur, initial encounter for closed fracture (10/05/21) Displaced bicondylar fracture of right tibia, initial encounter for closed fracture (10/05/21) Displaced bimalleolar fracture of right lower leg, initial encounter for closed fracture (10/05/21) Surgery Performed Operation Date: 10/05/21 13:15 Actual Procedures p I&D wound infection Right Ankle(Right) - Mine Petersen MD Physical Therapy Treatment Note M2 PT-IP Current Condition Start: 10/06/21 12:41 Freq: NEEDED Status: Active Protocol: Document 10/06/21 09:30 AB (Rec: 10/06/21 13:03 AB [email or web address]) Physical Therapy Current Condition Current Condition Evaluation Date 10/06/21 Treatment Diagnosis R ankle I&D s/p ORIF; difficulty in walking Onset Date 10/05/21 M3 PT-IP Subjective Start: 10/06/21 12:41 Freq: NEEDED Status: Active Protocol: Document 10/07/21 11:05 MA (Rec: 10/07/21 11:28 MA [id number]) Subjective Physical Therapy Visit Type Type Treatment Note Visit Start Time 10:35 Visit Stop Time 11:04 Total Visit Minutes 29 Notes TTWB on RLE Number of SENIOR DATA INTEGRATION DEVELOPER Visits 1 Physical Therapy Visit Comments Patient Comments Pt agreeable to working with PT and learning how to use FWW Therapy Pain Assessment Pain When Pain Assessed At Rest Pain Present Pain Present Pain Reported Location Right Leg Description Aching,Pressure Pain Management Techniques Elevation,Modification of Treatment,Re-positioning M4 PT-IP Mobility and Gait Start: 10/06/21 12:41 Freq: NEEDED Status: Active Protocol: Document 10/07/21 11:05 MA (Rec: 10/07/21 11:28 MA [id number]) PT-Bed Mobility Assessment Supine to Sit Supine to Sit Standby Assistance Scooting Scooting to Edge of Bed Standby Assistance PT-Transfer Assessment Sit to and From Stand Sit to and from Stand Contact Guard Assistance, Minimal Assistance,1 Person Assistance,Use of Upper Extremities Equipment Transfer Assistive Device Gait Belt,Front Wheeled Walker Orthotic/Prosthetic Devices or Brace: No Transfers Transfer Destination Chair Transfer Technique Stand Step Pivot Transfer Ability Level of Assist Moderate Assistance,1 Person Assistance,Use of Upper Extremities Comments Mobility Comments Pt is supine in bed upon arrival. She is SBA for bed mobility with HOB elevated and reports having hospital bed at home. She requires only CGA for sit>stand from bed but Min A for sit<>stands when getting out of chair. Pt is able to transfer stand-step pivot with FWW and gait belt, Mod A, with cues for TTWB on RLE and assistance for FWW management. Gait Assessment Gait Gait Assistance Required: Contact Guard Assist,Minimum Assistance,1 Person Assist Distance (Feet) 10 Able to Maintain Weight Bearing Status Yes During Gait Assistive Devices Assistive Device Gait Belt,Front Wheeled Walker Orthotic/Prosthetic Devices or Brace: No Gait Deviations General Gait Pattern Ataxic,Decreased Stride Length ,Decreased Feet Clearance, Flexed Trunk Factors Limiting Gait Function Factors Limiting Gait Function Decreased Activity Tolerance, Decreased Strength,Pain,Poor Balance,Poor Safety Awareness Comments Gait Comments Pt was able to stand 2x from room chair Min A and walk 5 ft to sink using gait belt and FWW CGA-MIN A with chair follow. Cued pt through pattern of moving walker, touching R toes to floor only for balance and pushing on walker with UEs to move LLE forward. She was able to maintain WB status and was happy to learn how to use the FWW but states she will continue using my w/c at home . PT-Balance Assessment Sitting Balance and Reactions Static Sitting Balance Ability Good Dynamic Sitting Balance Ability Good Standing Balance and Reactions Static Standing Balance Ability Fair Dynamic Standing Balance Ability Fair Device Used FWW M5 PT-IP Objective Assessments Start: 10/06/21 12:41 Freq: NEEDED Status: Active Protocol: Document 10/06/21 09:30 AB (Rec: 10/06/21 13:03 AB [email or web address]) Orientation Orientation/Cognition Level of Alertness Alert Orientation Name,Age,Birthday,Month,Date, Year,Day of Week,Place, Situation Language Function Ability No Deficits Noted Safety Awareness Understands Safety Issues Memory Description No Deficits Noted Gross Range of Motion Lower Extremity ROM Assessment Within Functional Limits Strength Lower Extremity Strength Assessment Right Impaired Hip 4-/5 Knee 3+/5 Coordination Assessment Gross Coordination Gross Coordination WNL Sensation Assessment Sensation Gross Sensation WNL Muscle Tone Muscle Tone WNL Yes M6 PT-IP Treatment Start: 10/06/21 12:41 Freq: NEEDED Status: Active Protocol: Document 10/07/21 11:05 MA (Rec: 10/07/21 11:28 [email or web address] [id number]) Physical Therapy Treatment Education Education Provided Precautions,Weight Bearing Status,Safety M7 PT-IP Assessment and Plan Start: 10/06/21 12:41 Freq: NEEDED Status: Active Protocol: Document 10/07/21 11:05 LEOPOLDO (Rec: 10/07/21 11:28 [email or web address] [id number]) PT Summary Assessment and Plan Potential Rehabilitation Potential Good Status of Condition at Evaluation Stable Summary Impairments Pain,ROM,Strength,Balance, Coordination,Sensation,Tone, Cognition,Bed Mobility, Transfers,Gait,Activity Tolerance Assessment Summary Pt requires CGA for sit>stand from bed, but Min A for sit<> stand from room chair due to lower surface. She has some difficulty initially transferring from bed>chair with FWW and requires Mod A for LOB laterally when attempting to hop on LLE for transfer. Explained TTWB status to pt and practiced gait in room with gait belt and FWW, Min A-CGA. Pt was able to maintain WB status and improve gait pattern with FWW when allowed to tap RLE to floor for balance. She has a w /c for home and states that she transfers without FWW when home between her couch, bed, and w/c. Reminded pt she needs to use the FWW for safety and to maintain WB status while in the hospital with pt showing good understanding. Pt will benefit from HHPT to improve strength and transfers for safety at home. Goals Bed Mobility Goal Independent Transfer Goal Independent,Front Wheeled Walker Gait Goal Contact Guard Assistance Gait Distance 25 Days to Meet Goals 10 Frequency of Treatment Frequency Of Treatment Once a Day Treatment Plan Physical Therapy Treatment Plan Bed Mobility Training,Transfer Training,Gait Training, Therapeutic Exercise,Balance Retraining,Post Op Education, Discharge Planning,Hot or Cold Pack,Neuromuscular Re-ed, Coordination Retraining,Manual Therapy Other Recommendations and Next Treatment Increase gait distance with Focus verbal cues for gait pattern with FWW and reminders of TTWB status. Chair follow due to pt's poor activity tolerance Weight Bearing Status Weight Bearing Status Touch Down Weight Bearing Allowed Weight Bearing Amount (enter % RLE TTWB or #) (%) Recommendations To Nursing Amount of Assist Needed 1 Person Assist Discharge Recommendations PT Discharge Recommendations Home with Assistance,Home Health Transportation Needs at Discharge Private Vehicle
--- NOTE | 2021-10-07 11:59 | CM.DPC ---
DCP Cont: Dr. Petersen indicated this morning, patient should be able to go home on oral antibiotics. She is getting another day of IV ABO today, with plan of discharging tomorrow. Asked Dr. Petersen if it would be appropriate to order [facility], and she indicated, would be ok. Called [facility] and spoke to Juan. She indicated that patient is current on their services, wound care with nursing, and therapy. Stated, will just need resumption orders and DC Summary. P: DCP to continue to follow. Plan is home with [facility], they have her on services, will just need resumption orders and DC Summary. Anastasia Prince RN/Hand Stapler
[2021-10-07] MEDS: WARFARIN 5 MG TABLET 2.5 MG PO (17:11)
[2021-10-07] MEDS: SODIUM CHLORIDE 0.9% 1,000 ML 84 ML IV (17:13)
[2021-10-07 18:45] VITALS: BP 110/72; PULSE 81; RESP 18; TEMP 36.6; O2SAT 97
[2021-10-07 19:52] VITALS: BP 140/72; PULSE 100; RESP 16; TEMP 36.6; O2SAT 96
[2021-10-07 23:56] VITALS: BP 123/61; PULSE 97; RESP 18; TEMP 36.5; O2SAT 97
[2021-10-08 05:00] VITALS: BP 148/79; PULSE 82; RESP 16; TEMP 36.6; O2SAT 96
[2021-10-08] MEDS: SODIUM CHLORIDE 0.9% 1,000 ML 84 ML IV (05:52)
[2021-10-08] MEDS: VANCOMYCIN 1,000 MG/200 ML PIGGYBACK 200 MG IV (05:54)
[2021-10-08 07:50] LABS: Add Manual Diff / Slide Review NO; Basophils Absolute Auto 100 /uL (0-100); Basophils Percent Auto 0.8 % (0-2); Eosinophils Absolute Auto 600 /uL (0-450); Eosinophils Percent Auto 6.6 % (2-4); Hematocrit 39.7 % (36-46); Hemoglobin 13.4 g/dL (12.0-16.0); Lymphocytes Absolute Auto 2100 /uL (1100-4500); Lymphocytes Percent Auto 24.1 % (25-40); Mean Corpuscular HGB Conc 33.6 % (30-36); Mean Corpuscular Hemoglobin 29.8 PG (26-34); Mean Corpuscular Volume 88.7 fL (80-100); Monocytes Absolute Auto 400 /uL (0-900); Neutrophils Absolute Auto 5800 /uL (1500-7000); Neutrophils Percent Auto 64.5 % (50-75); Platelet Count 201 X10^3/uL (150-400); Red Blood Cell Count 4.48 X10^6/uL (4.0-5.2); White Blood Cell Count 8.9 X10^3/uL (4.5-11.0)
--- NOTE | 2021-10-08 08:09 | PM.DS.1 ---
History of Present Illness History of Present Illness Date Patient Seen: 10/08/21 Time Patient Seen: 08:09 Chief complaint: INPT Narrative: The patient is a 76-year-old diabetic female on chronic anticoagulation fell and injured her right ankle and knee on August 19, 2021. She was found to have a nondisplaced tibial plateau fracture and a bimalleolar ankle fracture. She is status post ORIF of the ankle on 08/28/2021. Non operative treatment of the tibial plateau. Postop follow-up she is found to have a dehiscence and erythema around the proximal aspect of her lateral ankle incision. She was indicated for operative debridement and admission for IV antibiotics Discharge Providers Provider Date of admission: 10/05/21 12:04 Discharge Date: 10/08/21 Primary care physician: Frank Arzola MD Consults: 10/05/21 17:55 Consult to Discharge Planning Routine Comment: may need IV abx- pending cultures Consult to Physical Therapy Evaluate & Treat Comment: TTWB RLE ( R ankle and tibial plateau fxs) Physician Instructions: Evaluate and Treat Consult to Respiratory Therapy Evaluate & Treat Comment: Physician Instructions: Evaluate and treat Discharge provider: Mine Petersen MD Summary Hospital Course Discharge Diagnosis: Postoperative wound infection right ankle Hospital Course: Patient was brought to the operating room 10/05/2021 she had an irrigation and debridement. No gross purulence was found that this did track to the top of the plate proximally. Area of necrotic skin was excised. The wound was thoroughly irrigated and closed primarily. Intraoperative cultures were sent. The patient was admitted and maintained on vancomycin. And was then restarted on her home warfarin. After 3 days Gram stain was no organisms and cultures were no growth. Vital signs were stable. Status at Discharge Cognitive/behavioral status at discharge: oriented Functional status at discharge: uses cane/walker Overall status at discharge: patient is progressing back to baseline Time Spent with Patient Time spent: Less than 30 minutes Exam Vital Signs (past 8 hours): - 10/08/21 05:00 Temperature 97.9 F Pulse Rate 82 Respiratory Rate 16 Blood Pressure 148/79 H Pulse Oximetry 96 Oxygen Delivery Method Room Air Oxygen Flow Rate 0 Narrative Exam Narrative: Alert oriented female no acute distress. Breathing unlabored on room air. Heart regular rate. Right lower extremity dressing clean dry and intact. Sutures intact. No erythema. Scant drainage. No malodor. Demonstrates active dorsiflexion plantar flexion. Palpable dorsalis pedis pulse. Calf is soft Objective Labs Result Diagrams: 10/08/21 07:40 10/07/21 06:30 Labs: Laboratory Results - last 24 hr 10/08/21 07:40 WBC 8.9 RBC 4.48 Hgb 13.4 Hct 39.7 MCV 88.7 MCH 29.8 MCHC 33.6 RDW 14.0 Plt Count 201 Neut % (Auto) 64.5 Lymph % (Auto) 24.1 L [place] % (Auto) 4.0 Eos % (Auto) 6.6 H Baso % (Auto) 0.8 Neut # (Auto) 5800 Lymph # (Auto) 2100 [place] # (Auto) 400 Eos # (Auto) 600 H Baso # (Auto) 100 PFSH Medical History Breast cancer HTN (hypertension) IDDM (insulin dependent diabetes mellitus) Peritonitis Seizure, temporal lobe Social History household members: spouse Smoking Status: Never smoker alcohol intake: current Discharge Assessment & Plan Assessment and Plan Assessment: Postoperative wound infection right lateral ankle. Status post I&D. Tolerating antibiotics. Vital signs stable. Cultures with no growth. Will discharge on doxycycline to provide some MRSA coverage and tailor as indicated if the later finalized cultures end up showing growth. Patient understands and agrees with the plan. Will discharge home with home health. Plan of Treatment: Continue toe-touch weight-bearing right lower extremity. Range of motion full as tolerated. May change dressing to dry gauze as needed. Otherwise keep area of incision dry. Will take doxycycline 100 mg b.i.d. for antibiotic. [facility] 10[facility] Currently has follow-up on 10/18 in but this is being changed to 10/17 in [place]. Please call [phone] for final time. Continue home warfarin. Discharge Plan Discharge Plan Patient Disposition: Home Health Service Transfer to: [facility] Discharge orders & Medications Prescriptions: New doxycycline hyclate 100 mg capsule 100 mg PO BID Qty: 28 0RF hydrocodone-acetaminophen 5-325 mg tablet 1 tab PO Q6H PRN (Reason: pain) Qty: 14 0RF Rx Instructions: postop exempt Continued warfarin 5 mg tablet See Rx Instructions .ROUTE .COMPLEX 0RF Rx Instructions: take 1/2 tablet on Friday, Friday, (2.5 mg dose) take 1 full tablet on Friday, , Friday, Friday (5mg dose) metformin 1,000 mg tablet extended release 24hr 1,000 mg PO BID 0RF Levemir U-100 Insulin 100 unit/mL solution 60 unit SUBCUT BEDTIME 0RF Label Comments: 58 units taken metoprolol tartrate 50 mg Tablet 50 mg PO BID 0RF furosemide 40 mg tablet 40 mg PO PRN PRN (Reason: Edema) 0RF Discontinued hydrocodone-acetaminophen 5-325 mg tablet 1 tab PO Q6H PRN (Reason: pain) Qty: 10 0RF Follow up/Referrals: Mine Petersen MD [Family Provider] - ( follow-up on October at 1:00 p.m. [facility] ) Frank Arzola MD [Primary Care Provider] - Diet/Activity/Treatments Diet: Carb-consistent/Diabetic Activity: ttwb RLE Other treatments: At-Home Instructions - Dr. Petersen Surgery: I&D right ankle Cast/Splint/Dressing Care Instructions 1) Keep dressing clean and dry. 2) May bathe - but cast/dressing must remain dry. 3) Observe for increasing pain in the extremity with the cast, finger/toe-tips turning blue/purple, or numbness and tingling in your toes/fingers. Should any of these symptoms arise, you need to be seen immediately for evaluation of swelling and increasing compartment pressures within your affected extremity. Activity No heavy lifting greater than 10 pounds. No [address] while on narcotic pain medication. You must remain non-weight bearing/ttwb on your operative extremity. Use crutches or a walker for ambulation. No driving until you are otherwise instructed by your physician. This will be addressed at your first follow-up appointment. Discharge Pain Medications You will be given a prescription for pain medication. You should start taking this the same day after your surgery. Wean off as tolerated. Do not wait to take the pain medication until the pain is severe, as it will be difficult to catch up once this occurs. The pain medication usually reaches its full effect ~1 hour after ingesting. If you have been sent home on Colace, this medication should be taken until you are off all narcotic (i.e. Vicodin, Percocet, Oxycodone, etc) pain medications, to prevent constipation. You may also obtain this or another stool softener over the counter to prevent or alleviate constipation. Percocet or Vicodin have Tylenol in their ingredient lists. You must be careful not to exceed 3,000mg (3 grams) of Tylenol, from all sources, within a single 24-hr period. This means that you may not take more than 10 pills within a 24-hr period. Do NOT take Regular or Extra Strength Tylenol when taking your Percocet or Vicodin medications. -IF you have been given a Toradol/ketorolac prescription, this is a very strong anti-inflammatory. Do not take umjg-cfa-[id number] anti-inflammatories (ibuprofen, Aleve, Advil, Motrin) while taking the Toradol/ketorolac. Once you are finished with this prescription, then you can resume zrpj-ujn-wbcybwx anti-inflammatories. You can still take your narcotic pain medication and Tylenol while taking the Toradol/ketorolac. -Some common side effects of the narcotic pain medications (Percocet, Oxycodone, Vicodin, etc.) include nausea and itching. Benadryl is a great over the counter medication that helps calm your stomach, decreases your anxiety levels, and minimizes the itching. You can easily purchase this at your local pharmacy as an tfqb-jgy-rexkxfg medication. Please abide by the instructions as printed on the bottle. If your nausea persists, make sure to take small amounts of crackers or other radiology scheduler foods. Follow-Up/Emergency Contacts Please call for an appointment in either [place] or [place], if one has not been scheduled. Follow up 2 weeks after surgery. [phone]--currently your first postop is in process of being rescheduled from 10/[address] [place] [address] Petersen-- this will be rescheduled to 10/[address] [place] [address] Petersen but we do not have the final time yet. if you do not get a call by 10/15 please call our office to confirm a time for 10/17 in [place]. Contact the office if you have any of the following: ? Painful swelling or numbness ? Unrelenting pain ? Fever (over 101?- it is normal to have a low grade fever for the first day or two following surgery) or chills ? Redness around the incisions ? Color changes ? Continuous bleeding or drainage from the incision (a small amount is expected) ? Excessive nausea or vomiting ? Difficulty breathing If you have an emergency that requires immediate attention such as shortness of breath or chest pain, call 911 or proceed to the nearest emergency room. Blood Clot Prophylaxis You will restart your regular and anticoagulation with warfarin. You can also obtain compression socks of antiembolism hose (TEODORA) hose from the drug store to wear on the nonoperative leg and also on the operative leg once the splint or cast is removed. Adjust your position or get up onto your crutches every hour or so just to move around. Pain Medications: It is the policy of [facility] that narcotic medications will only be refilled during office hours. Additionally, due to the alarming rate of narcotic pain medication abuse/dependence, it has become necessary for physician practices to closely manage patient use of prescription narcotic pain relievers, such as Vicodin ([place]), Percocet, and Oxycodone products. Narcotic pain management in the postoperative period may not exceed 6 weeks. If narcotic pain management is required beyond 90 days, then a referral to a Chronic Pain Specialist will be made. If a request for a medication prescription has been made, the physician must review your chart prior to authorizing the request. Please be patient with office staff. If you call during patient hours, your call may not be returned until the end of the day. Dr. Mine Petersen [address] [email or web address] Skin/Wound/Dressing Care Report to your healthcare provider any signs of infection, such as:: chills, fever, night sweats, increased pain, unusual drainage and unusual redness Dressing: May change dressing to a clean dry gauze as needed or once a week with home nursing Visit Report/Discharge Packet Instructions: DI for Incision and Drainage Discharge Data Primary Care Provider: Frank Arzola VTE Deep Vein Thrombosis/Pulmonary Embolism Present on Admission: No
[2021-10-08 08:23] LABS: Alanine Aminotransferase 15 IU/L (<35); Albumin 4.1 g/dL (3.5-5.0); Albumin Globulin Ratio 1.2 (1.0-2.8); Alkaline Phosphatase 61 U/L (38-126); Aspartate Aminotransferase 22 IU/L (14-36); BUN Creatinine Ratio 24.1 (6-22); Bilirubin Total 0.4 mg/dL (0.2-1.3); Blood Urea Nitrogen 13 mg/dL (7-17); Calcium 10.2 mg/dL (8.4-10.2); Carbon Dioxide 25 mmol/L (22-32); Chloride 107 mmol/L (98-107); Estimated Glomerular Filt Rate > 60.0 mL/min (>60); Globulin 3.4 g/dL (1.7-4.1); Glucose 91 mg/dL (80-110); HEMOLYSIS < 15 (0-50); Potassium 4.4 mmol/L (3.4-5.1); Sodium 138 mmol/L (137-145); Total Protein 7.5 g/dL (6.3-8.2)
[2021-10-08] MEDS: ACETAMINOPHEN 325 MG TABLET 975 MG PO (08:41)
[2021-10-08] MEDS: METOPROLOL IR 50 MG TABLET PO (08:41)
[2021-10-08] MEDS: DOCUSATE 100 MG CAPSULE PO (08:41)
[2021-10-08] MEDS: METFORMIN XR 500 MG TABLET 1000 MG PO (08:41)
--- NOTE | 2021-10-08 08:43 | CM.DPC ---
Addendum entered by JOSE Landrum 10/08/21 09:15: ADD: Return call from Tammie at [facility] confirming they just need Resume Orders but if F2F completed then wouldn't hurt to fax. CHRISTIN faxed Resume Orders, F2F and d/c summary to [place] to review for d/c today. BF Original Note: DCP Discharge Home with HH Per Ortho MD, pt medically stable to d/c home on oral abx and HH. CHRISTIN called [facility] and left msg with update on d/c to home today and inquire that no F2F needed and just Resume Orders and d/c summary. Plan: Patient to d/c home today via POV and SW waiting to confirm Resume vs new HH orders for [facility]. JOSE Landrum
[2021-10-08 09:44] VITALS: BP 128/51; PULSE 88; RESP 16; TEMP 36.1; O2SAT 98
--- NOTE | 2021-10-08 10:21 | DI.US.S_ITS ---
PROCEDURE: US PERIPH VENOUS LOW EXTREM RT INDICATIONS: EDEMA TECHNIQUE: Real-time imaging, as well as color and pulse Doppler interrogation, were performed of the lower extremity deep veins from the inguinal ligament to the popliteal fossa. COMPARISON: None. FINDINGS: The common femoral, femoral and popliteal veins are normally compressible, and free of intraluminal thrombus. Color and pulse Doppler demonstrate normal phasic intraluminal flow. There is normal augmentation response to distal compression maneuver. IMPRESSION: No sonographic evidence of DVT. Dictated by: Dominick Morris M.D. on 10/08/2021 at 10:24 Approved by: Dominick Morris M.D. on 10/08/2021 at 10:25
--- NOTE | 2021-10-08 10:40 | PT-IP ANOTE ---
Attempted to see pt at 10:40 AM, pt refused stating she wants to save her energy for returning home.
--- NOTE | 2021-10-08 12:20 | PC.NURSE ---
Pt is packed up, IV removed, and ready for discharge home with Spouse. Went over d/c instructions with Pt-discussed d/c meds, time of last dose, reviewed stroke education, no driving until cleared by MD, drink plenty of fluids to prevent constipation or dehydration, TTWB, and follow up. Pt denied further questions and was taken out via w/c by [facility] to POV with Spouse and all belongings.
== END 2021-10-08 12:29 | disposition home health service (06) | DRG 857 ==
PROVIDERS: Admitting Provider Orthopaedic Surgery Foot and Ankle Surgery; Family Provider Orthopaedic Surgery Foot and Ankle Surgery; PCP Family Medicine; Referring Provider Orthopaedic Surgery Foot and Ankle Surgery; Visit Provider Orthopaedic Surgery Foot and Ankle Surgery
PROC: 0KBS0ZZ Excision of Right Lower Leg Muscle, Open Approach (ICD-10-PCS; principal; 2021-10-05 13:15)
DX: T81.42XA Infection following a procedure, deep incisional surgical site, initial encounter (principal); T81.31XA Disruption of external operation (surgical) wound, not elsewhere classified, initial encounter; E11.52 Type 2 diabetes mellitus with diabetic peripheral angiopathy with gangrene; I96 Gangrene, not elsewhere classified; I48.91 Unspecified atrial fibrillation; I10 Essential (primary) hypertension; S82.841D Displaced bimalleolar fracture of right lower leg, subsequent encounter for closed fracture with routine healing; Z79.4 Long term (current) use of insulin; Z79.84 Long term (current) use of oral hypoglycemic drugs; Z79.01 Long term (current) use of anticoagulants; Z20.822 Contact with and (suspected) exposure to COVID-19
CPT/HCPCS: 36415; 80053; 80202; 82565; 82962; 85025; 85610; 86140; 87070; 87075; 87176; 87205; 87635; 93971; 97116; 97161; 97530; C9803; J0171; J1815; J2405; J2704; J3010

== ENCOUNTER → 2021-10-24 13:01 | Outpatient (CLI) | payer MEDICARE, OTHER, SELFPAY ==
[2021-10-05 18:32] VITALS: BMI 31.2
== END ==
PROVIDERS: Family Provider Orthopaedic Surgery Foot and Ankle Surgery; PCP Family Medicine; Referring Provider Family Medicine; Visit Provider Family Medicine
DX: E11.621 Type 2 diabetes mellitus with foot ulcer (principal); L97.522 Non-pressure chronic ulcer of other part of left foot with fat layer exposed; E11.40 Type 2 diabetes mellitus with diabetic neuropathy, unspecified; Z79.01 Long term (current) use of anticoagulants
CPT/HCPCS: 11042; 99204; 99213

== ENCOUNTER → 2021-10-30 09:47 | Outpatient (CLI) | payer MEDICARE, OTHER, SELFPAY ==
[2021-10-05 18:32] VITALS: BMI 31.2
== END ==
PROVIDERS: Family Provider Orthopaedic Surgery Foot and Ankle Surgery; PCP Family Medicine; Referring Provider Family Medicine; Visit Provider Family Medicine
DX: E11.40 Type 2 diabetes mellitus with diabetic neuropathy, unspecified (principal); Z79.01 Long term (current) use of anticoagulants
CPT/HCPCS: 99212; 99213

== ENCOUNTER → 2022-01-23 15:13 | Outpatient (CLI) | payer MEDICARE, OTHER, SELFPAY ==
[2021-10-05 18:32] VITALS: BMI 31.2
== END ==
PROVIDERS: Family Provider Orthopaedic Surgery Foot and Ankle Surgery; PCP Family Medicine; Referring Provider Family Medicine; Visit Provider Family Medicine
DX: E11.621 Type 2 diabetes mellitus with foot ulcer (principal); L97.512 Non-pressure chronic ulcer of other part of right foot with fat layer exposed; L84 Corns and callosities; E11.40 Type 2 diabetes mellitus with diabetic neuropathy, unspecified; E11.29 Type 2 diabetes mellitus with other diabetic kidney complication; R80.9 Proteinuria, unspecified; I48.91 Unspecified atrial fibrillation; Z79.01 Long term (current) use of anticoagulants; Z79.4 Long term (current) use of insulin; Z79.84 Long term (current) use of oral hypoglycemic drugs
CPT/HCPCS: 11042; 99213; 99214

== ENCOUNTER → 2022-01-30 13:37 | Outpatient (CLI) | payer MEDICARE, OTHER, SELFPAY ==
[2021-10-05 18:32] VITALS: BMI 31.2
== END ==
PROVIDERS: Family Provider Orthopaedic Surgery Foot and Ankle Surgery; PCP Family Medicine; Referring Provider Family Medicine; Visit Provider Family Medicine
DX: E11.621 Type 2 diabetes mellitus with foot ulcer (principal); L97.512 Non-pressure chronic ulcer of other part of right foot with fat layer exposed; L84 Corns and callosities; E11.40 Type 2 diabetes mellitus with diabetic neuropathy, unspecified; E11.29 Type 2 diabetes mellitus with other diabetic kidney complication; R80.9 Proteinuria, unspecified; Z79.01 Long term (current) use of anticoagulants; Z79.4 Long term (current) use of insulin; Z79.84 Long term (current) use of oral hypoglycemic drugs
CPT/HCPCS: 11042

== ENCOUNTER → 2022-02-06 13:54 | Outpatient (CLI) | payer MEDICARE, OTHER, SELFPAY ==
[2021-10-05 18:32] VITALS: BMI 31.2
== END ==
PROVIDERS: Family Provider Orthopaedic Surgery Foot and Ankle Surgery; PCP Family Medicine; Referring Provider Family Medicine; Visit Provider Family Medicine
DX: Z09 Encounter for follow-up examination after completed treatment for conditions other than malignant neoplasm (principal); E11.40 Type 2 diabetes mellitus with diabetic neuropathy, unspecified; R80.9 Proteinuria, unspecified; Z79.01 Long term (current) use of anticoagulants; Z87.2 Personal history of diseases of the skin and subcutaneous tissue; Z79.4 Long term (current) use of insulin; Z79.84 Long term (current) use of oral hypoglycemic drugs
CPT/HCPCS: 99212; 99213

== ENCOUNTER → 2022-07-06 09:19 | Outpatient (CLI) | payer MEDICARE, OTHER, SELFPAY ==
[2021-10-05 18:32] VITALS: BMI 31.2
[2022-07-09 08:34] LABS: Lamotrigine Lamictal 8.6 ug/mL (2.0-20.0)
== END ==
PROVIDERS: Family Provider Orthopaedic Surgery Foot and Ankle Surgery; PCP Family Medicine; Referring Provider Psychiatry & Neurology Neurology; Visit Provider Psychiatry & Neurology Neurology
DX: G40.109 Localization-related (focal) (partial) symptomatic epilepsy and epileptic syndromes with simple partial seizures, not intractable, without status epilepticus (principal)
CPT/HCPCS: 36415; 80175

== ENCOUNTER → 2022-10-17 09:17 | Outpatient (CLI) | payer MEDICARE, OTHER, SELFPAY ==
[2021-10-05 18:32] VITALS: BMI 31.2
[2022-10-17 10:18] LABS: Hemoglobin A1C% w Est Avg Glu 5.5 % (4.0-6.0)
[2022-10-17 10:35] LABS: Alanine Aminotransferase 14 IU/L (<35); Albumin 3.7 g/dL (3.5-5.0); Albumin Globulin Ratio 1.2 (1.0-2.8); Alkaline Phosphatase 92 U/L (38-126); Aspartate Aminotransferase 24 IU/L (14-36); BUN Creatinine Ratio 20.7 (6-22); Bilirubin Total 0.7 mg/dL (0.2-1.3); Blood Urea Nitrogen 12 mg/dL (7-17); Calcium 9.3 mg/dL (8.4-10.2); Carbon Dioxide 30 mmol/L (22-32); Chloride 98 mmol/L (98-107); Cholesterol 152 mg/dL (140-199); Estimated Glomerular Filt Rate > 60 mL/min (>60); Globulin 3.2 g/dL (1.7-4.1); Glucose 92 mg/dL (80-110); HDL Cholesterol 43 mg/dL (40-60); HEMOLYSIS < 15 (0-50); LDL Cholesterol Calculated 86 mg/dL (<100); Potassium 2.8 mmol/L (3.4-5.1); Sodium 138 mmol/L (137-145); Total Protein 6.9 g/dL (6.3-8.2); Triglycerides 113 mg/dL (35-150)
[2022-10-17 10:39] LABS: Creatinine Urine Random 238.9 mg/dL; Protein (Total) Urine Random 22 mg/dL (0-12); Protein Creatinine Ratio Urine 0.09 GRAM/24H
== END ==
PROVIDERS: Family Provider Orthopaedic Surgery Foot and Ankle Surgery; PCP Family Medicine; Referring Provider Family Medicine; Visit Provider Family Medicine
DX: R73.9 Hyperglycemia, unspecified (principal); I48.91 Unspecified atrial fibrillation; I49.9 Cardiac arrhythmia, unspecified; I73.9 Peripheral vascular disease, unspecified
CPT/HCPCS: 36415; 80053; 80061; 82570; 83036; 84156

== ENCOUNTER → 2022-11-12 11:58 | Outpatient (CLI) | payer MEDICARE, OTHER, SELFPAY ==
[2021-10-05 18:32] VITALS: BMI 31.2
[2022-11-12 13:08] LABS: INR 1.8 (0.9-1.3); Prothrombin Time 20.3 SECONDS (10.1-12.7)
== END ==
PROVIDERS: Family Provider Orthopaedic Surgery Foot and Ankle Surgery; PCP Family Medicine; Referring Provider Family Medicine; Visit Provider Family Medicine
DX: I48.91 Unspecified atrial fibrillation (principal); Z51.81 Encounter for therapeutic drug level monitoring; Z79.01 Long term (current) use of anticoagulants
CPT/HCPCS: 36415; 85610

== ENCOUNTER → 2022-11-19 13:37 | Outpatient (CLI) | payer MEDICARE, OTHER, SELFPAY ==
[2021-10-05 18:32] VITALS: BMI 31.2
[2022-11-19 14:27] LABS: INR 2.1 (0.9-1.3); Prothrombin Time 24.3 SECONDS (10.1-12.7)
[2022-11-19 14:33] LABS: HEMOLYSIS < 15 (0-50); Potassium 3.5 mmol/L (3.4-5.1)
== END ==
PROVIDERS: Family Provider Orthopaedic Surgery Foot and Ankle Surgery; PCP Family Medicine; Referring Provider Family Medicine; Visit Provider Family Medicine
DX: I48.19 Other persistent atrial fibrillation (principal); E87.6 Hypokalemia; Z51.81 Encounter for therapeutic drug level monitoring; Z79.01 Long term (current) use of anticoagulants
CPT/HCPCS: 36415; 84132; 85610